=== PATIENT | male | born 2000 | race African-American/Black ===

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

== ENCOUNTER 2020-07-14 17:12 | Inpatient (IN) ==
[2020-07-14] MEDS ORDERED: ONDANSETRON 4 MG/2 ML VIAL IV ONE (17:43)
[2020-07-14] MEDS ORDERED: HYDROmorphone 2 MG/1 ML VIAL IV STA ×2 (17:43→18:20)
[2020-07-14] MEDS ORDERED: SODIUM CHLORIDE 0.9% 1,000 ML IV STA (17:44)
[2020-07-14 18:08] LABS: Calcium 8.7 MG/DL (8.5-10.1); Osmolality,Calculated 261.5 MOS/KG (273-304); Potassium 3.9 MMOL/L (3.5-5.1)
[2020-07-14 18:09] LABS: Basophils # 0.1 10*3/uL (0.0-0.2); Basophils % 0.4 % (0.0-0.8); Eosinophils # 0.3 10*3/uL (0.0-0.87); Eosinophils % 1.4 % (0.00-10.9); Hematocrit 21.8 VOL% (42.0-52.0); Hemoglobin 7.6 GM/DL (14.0-18.0); Immature Granulocytes % 2.2 %; Immature Granulocytes Absolute 0.49 #; Lymphocytes # 4.7 10*3/uL (1.4-4.0); Lymphocytes % 20.9 % (21.2-54.2); Mean Corpuscular HGB Conc 34.9 GM/DL (32-36); Mean Corpuscular Volume 73.4 FL (87-102); NRBC # 0.23 10*3/uL; Neutrophils % 69.1 % (38.7-73.9); Platelet Count 248 T/CUMM (130-400); Red Blood Count 2.97 MC/CUMM (3.8-5.5); Red Cell Distribution Width 29.4 % (9.3-17.3); White Blood Count 22.7 T/CUMM (4-12)
[2020-07-14] MEDS ORDERED: MORPHINE 4 MG/1 ML VIAL IV STA ×2 (19:05→21:12)
[2020-07-14] MEDS ORDERED: cefTRIAXone 1,000 MG in SODIUM CHLORIDE 0.9% 100 ML IV STA (19:06)
[2020-07-14 19:16] LABS: Anisocytosis 4+; Eosinophils 3 % (0-10); Hypochromasia 1+; Lymphocytes 23 % (20-55); Microcytosis 1+; Nucleated Red Blood Cells 1 (0-5); Ovalocytes 1+; Segmented Neutrophils 69 % (50-85); Sickle Cells 3+; Total Cells Counted 100
[2020-07-14] MEDS ORDERED: GLUCAGON 1 MG VIAL IM PRN (21:38)
[2020-07-14] MEDS ORDERED: SODIUM CHLORIDE 0.9% 1,000 ML IV PRN (21:38)
[2020-07-14] MEDS ORDERED: ALBUTEROL/IPRATROPIUM 3 ML NEB RESP TX PRN (21:38)
[2020-07-14] MEDS ORDERED: NALOXONE 0.4 MG/ML VIAL IV PRN (21:38)
[2020-07-14] MEDS ORDERED: DEXTROSE 50% 25 GM/50 ML VIAL IV PRN (21:38)
[2020-07-14] MEDS ORDERED: AZITHROMYCIN INJ 500 MG in SODIUM CHLORIDE 0.9% 250 ML IV SCH (22:00)
[2020-07-14] MEDS ORDERED: HYDROmorphone PCA 30 MG/30 ML SYRINGE IV SCH (22:00)
[2020-07-15] MEDS: SODIUM CHLORIDE 0.9% 1,000 ML IV SCH ×3 (00:11→19:14)
[2020-07-15] MEDS: ENOXAPARIN 40 MG/0.4 ML SYRINGE SUBCUT SCH ×2 (01:18→21:54)
[2020-07-15] MEDS: diphenhydrAMINE CAP 25 MG CAPSULE PO PRN (02:27)
[2020-07-15] MEDS: ONDANSETRON 4 MG/2 ML VIAL IV PRN ×3 (03:43→19:30)
[2020-07-15 08:17] LABS: Basophils # 0.1 10*3/uL (0.0-0.2); Basophils % 0.3 % (0.0-0.8); Eosinophils # 0.2 10*3/uL (0.0-0.87); Eosinophils % 1.2 % (0.00-10.9); Immature Granulocytes % 1.5 %; Immature Granulocytes Absolute 0.27 #; Lymphocytes # 4.3 10*3/uL (1.4-4.0); Lymphocytes % 24.5 % (21.2-54.2); Mean Corpuscular Volume 71.8 FL (87-102); Mean Platelet Volume 9.6 FL (9.6-12.0); Monocytes % 8.4 % (1.7-12.7); NRBC # 0.33 10*3/uL; Neutrophils % 64.1 % (38.7-73.9); Platelet Count 253 T/CUMM (130-400); Red Blood Count 2.48 MC/CUMM (3.8-5.5); Red Cell Distribution Width 29.4 % (9.3-17.3); White Blood Count 17.6 T/CUMM (4-12)
[2020-07-15 08:20] LABS: Hemoglobin 6.4 GM/DL (14.0-18.0)
[2020-07-15 08:21] LABS: Hematocrit 17.8 VOL% (42.0-52.0)
[2020-07-15 08:35] LABS: Eosinophils 1 % (0-10); Lymphocytes 34 % (20-55); Nucleated Red Blood Cells 4 (0-5); Platelet Estimate Adequate; Segmented Neutrophils 58 % (50-85); Total Cells Counted 100
[2020-07-15 08:36] LABS: Macrocytosis Slight; Polychromasia Slight; Sickle Cells 2+
[2020-07-15 08:37] LABS: Hypochromasia 1+
[2020-07-15 08:38] LABS: Dohle Bodies Slight; Pappenheimer Bodies Slight
[2020-07-15 08:40] LABS: Albumin 3.4 G/DL (3.4-5.0); Bilirubin,Total 3.7 MG/DL (0.2-1.0); Calcium 8.1 MG/DL (8.5-10.1); Potassium 3.8 MMOL/L (3.5-5.1); Total Protein 7.4 G/DL (6.4-8.3)
[2020-07-15] MEDS ORDERED: PANTOPRAZOLE 40 MG TABLET PO SCH (09:00)
[2020-07-15] MEDS ORDERED: SODIUM CHLORIDE 0.9% 1,000 ML IV PRN (09:42)
[2020-07-15] MEDS ORDERED: cefTRIAXone 1,000 MG in SODIUM CHLORIDE 0.9% 100 ML IV SCH (18:00)
[2020-07-15 18:25] LABS: Hematocrit 26.8 VOL% (42.0-52.0); Hemoglobin 9.4 GM/DL (14.0-18.0)
[2020-07-15] MEDS ORDERED: AZITHROMYCIN 250 MG TABLET PO SCH (21:00)
[2020-07-15] MEDS ORDERED: HYDROmorphone PCA 30 MG/30 ML SYRINGE IV SCH (22:00)
[2020-07-16] MEDS: diphenhydrAMINE CAP 25 MG CAPSULE PO PRN (01:07)
[2020-07-16] MEDS: SODIUM CHLORIDE 0.9% 1,000 ML IV SCH ×2 (03:31→11:00)
[2020-07-16 05:54] LABS: Basophils % 0.3 % (0.0-0.8); Eosinophils # 0.4 10*3/uL (0.0-0.87); Eosinophils % 2.6 % (0.00-10.9); Hematocrit 25.6 VOL% (42.0-52.0); Hemoglobin 8.8 GM/DL (14.0-18.0); Immature Granulocytes Absolute 0.16 #; Lymphocytes % 31.6 % (21.2-54.2); Mean Corpuscular HGB Conc 34.4 GM/DL (32-36); Mean Corpuscular Volume 75.7 FL (87-102); Mean Platelet Volume 9.4 FL (9.6-12.0); NRBC # 0.39 10*3/uL; Neutrophils % 54.5 % (38.7-73.9); Platelet Count 263 T/CUMM (130-400); Red Blood Count 3.38 MC/CUMM (3.8-5.5); Red Cell Distribution Width 31.1 % (9.3-17.3); White Blood Count 15.8 T/CUMM (4-12)
[2020-07-16 06:33] LABS: Calcium 8.1 MG/DL (8.5-10.1); Osmolality,Calculated 274.4 MOS/KG (273-304); Potassium 3.7 MMOL/L (3.5-5.1)
[2020-07-16 11:35] VITALS: BP 111/57
== END 2020-07-16 13:25 | disposition home or self-care (01) | DRG 662 ==
LOC: EDUNIT# → EDBD → N.ED 17:12 → N.EDINP 21:38 → N.5E 23:38
PROVIDERS: ADMIT Internal Medicine; ATTEND Internal Medicine

== ENCOUNTER 2020-11-21 03:57 | Inpatient (IN) ==
[2020-11-21 04:29] LABS: Basophils # 0.1 10*3/uL (0.0-0.2); Basophils % 0.4 % (0.0-0.8); Eosinophils # 0.5 10*3/uL (0.0-0.87); Eosinophils % 2.4 % (0.00-10.9); Hematocrit 19.6 VOL% (42.0-52.0); Hemoglobin 7.1 GM/DL (14.0-18.0); Immature Granulocytes % 1.6 %; Lymphocytes # 4.2 10*3/uL (1.4-4.0); Lymphocytes % 21.9 % (21.2-54.2); Mean Corpuscular HGB Conc 36.2 GM/DL (32-36); Mean Platelet Volume 9.4 FL (9.6-12.0); Monocytes % 8.7 % (1.7-12.7); NRBC # 0.81 10*3/uL; Platelet Count 249 T/CUMM (130-400); Red Blood Count 2.48 MC/CUMM (3.8-5.5); Red Cell Distribution Width 30.8 % (9.3-17.3)
[2020-11-21] MEDS ORDERED: KETOROLAC 30 MG/1 ML VIAL IV STA (04:44)
[2020-11-21 04:47] LABS: Hypochromasia 2+; Lymphocytes 30 % (20-55); Macrocytosis Slight; Nucleated Red Blood Cells 9 (0-5); Platelet Estimate Adequate; Polychromasia Slight; Segmented Neutrophils 64 % (50-85); Sickle Cells 1+; Target Cells Few; Total Cells Counted 100
[2020-11-21 04:53] LABS: Bilirubin,Total 4.6 MG/DL (0.2-1.0); Calcium 8.3 MG/DL (8.5-10.1); Potassium 3.9 MMOL/L (3.5-5.1); Total Protein 7.4 G/DL (6.4-8.2)
[2020-11-21] MEDS ORDERED: SODIUM CHLORIDE 0.9% 1,000 ML IV PRN (05:30)
[2020-11-21] MEDS ORDERED: NALOXONE 0.4 MG/ML VIAL IV PRN (05:30)
[2020-11-21] MEDS ORDERED: GLUCAGON 1 MG VIAL IM PRN (05:33)
[2020-11-21] MEDS ORDERED: DOCUSATE SODIUM 100 MG CAPSULE PO PRN (05:34)
[2020-11-21] MEDS ORDERED: ACETAMINOPHEN 325 MG TABLET PO PRN (05:34)
[2020-11-21] MEDS ORDERED: ONDANSETRON 4 MG/2 ML VIAL IV PRN (05:34)
[2020-11-21] MEDS ORDERED: diphenhydrAMINE CAP 25 MG CAPSULE PO PRN (05:34)
[2020-11-21] MEDS ORDERED: HYDROmorphone 2 MG/1 ML VIAL IV STA (05:46)
[2020-11-21] MEDS ORDERED: ONDANSETRON 4 MG/2 ML VIAL IV STA (05:48)
[2020-11-21] MEDS: SODIUM CHLORIDE 0.9% 1,000 ML IV SCH ×3 (06:00→23:38)
[2020-11-21] MEDS: HYDROmorphone PCA 30 MG/30 ML SYRINGE IV SCH (09:38)
[2020-11-21 18:53] LABS: Hematocrit 26.3 VOL% (42.0-52.0)
[2020-11-21 18:55] LABS: Hemoglobin 9.1 GM/DL (14.0-18.0)
[2020-11-21] MEDS ORDERED: HYDROmorphone PCA 30 MG/30 ML SYRINGE IV SCH (20:00)
[2020-11-22] MEDS ORDERED: HYDROmorphone PCA 30 MG/30 ML SYRINGE IV SCH (05:30)
[2020-11-22 06:12] LABS: Basophils % 0.4 % (0.0-0.8); Eosinophils # 0.2 10*3/uL (0.0-0.87); Eosinophils % 1.5 % (0.00-10.9); Hematocrit 26.1 VOL% (42.0-52.0); Immature Granulocytes % 0.5 %; Immature Granulocytes Absolute 0.06 #; Lymphocytes # 3.6 10*3/uL (1.4-4.0); Mean Corpuscular HGB Conc 34.5 GM/DL (32-36); Mean Corpuscular Volume 83.4 FL (87-102); Mean Platelet Volume 9.9 FL (9.6-12.0); Monocytes % 10.3 % (1.7-12.7); NRBC # 0.62 10*3/uL; Neutrophils % 55.3 % (38.7-73.9); Platelet Count 262 T/CUMM (130-400); Red Blood Count 3.13 MC/CUMM (3.8-5.5); White Blood Count 11.2 T/CUMM (4-12)
[2020-11-22 06:22] LABS: Albumin 3.4 G/DL (3.4-5.0); Bilirubin,Total 3.6 MG/DL (0.2-1.0); Calcium 8.2 MG/DL (8.5-10.1); Osmolality,Calculated 272.5 MOS/KG (273-304); Potassium 3.9 MMOL/L (3.5-5.1); Total Protein 6.5 G/DL (6.4-8.2)
[2020-11-22] MEDS: SODIUM CHLORIDE 0.9% 1,000 ML IV SCH ×2 (07:45→16:08)
[2020-11-22] MEDS: HYDROmorphone PCA 30 MG/30 ML SYRINGE IV SCH (07:47)
[2020-11-22] MEDS ORDERED: oxyCODONE IR 5 MG TABLET PO PRN (23:05)
[2020-11-23] MEDS: SODIUM CHLORIDE 0.9% 1,000 ML IV SCH ×2 (00:11→07:17)
[2020-11-23 05:41] LABS: Basophils % 0.3 % (0.0-0.8); Eosinophils # 0.2 10*3/uL (0.0-0.87); Eosinophils % 2.5 % (0.00-10.9); Hematocrit 25.4 VOL% (42.0-52.0); Hemoglobin 8.8 GM/DL (14.0-18.0); Immature Granulocytes % 0.2 %; Immature Granulocytes Absolute 0.02 #; Lymphocytes # 3.9 10*3/uL (1.4-4.0); Lymphocytes % 44.2 % (21.2-54.2); Mean Corpuscular HGB Conc 34.6 GM/DL (32-36); Mean Corpuscular Volume 82.5 FL (87-102); Mean Platelet Volume 10.2 FL (9.6-12.0); NRBC # 0.04 10*3/uL; Neutrophils % 41.8 % (38.7-73.9); Platelet Count 212 T/CUMM (130-400); Red Blood Count 3.08 MC/CUMM (3.8-5.5); White Blood Count 8.9 T/CUMM (4-12)
[2020-11-23 05:58] LABS: Albumin 3.5 G/DL (3.4-5.0); Bilirubin,Total 4.2 MG/DL (0.2-1.0); Calcium 8.3 MG/DL (8.5-10.1); Osmolality,Calculated 278.1 MOS/KG (273-304); Potassium 4.4 MMOL/L (3.5-5.1); Total Protein 6.8 G/DL (6.4-8.2)
[2020-11-23 06:36] LABS: Sickle Cells 3+
[2020-11-23 06:37] LABS: Hypochromasia 1+; Microcytosis 1+; Poikilocytosis 3+; Polychromasia Slight
[2020-11-23 06:39] LABS: Platelet Estimate Normal
[2020-11-23 08:23] VITALS: BP 97/42
== END 2020-11-23 13:04 | disposition home or self-care (01) | DRG 662 ==
LOC: EDUNIT# → EDBD → N.ED 03:57 → N.EDINP 05:17 → N.3E 08:06
PROVIDERS: ADMIT Internal Medicine; ATTEND Internal Medicine

== ENCOUNTER 2020-12-25 10:28 | Observation (INO) ==
[2020-12-25] MEDS ORDERED: ONDANSETRON 4 MG/2 ML VIAL IV STA (11:53)
[2020-12-25] MEDS ORDERED: HYDROmorphone 2 MG/1 ML VIAL IV STA (11:53)
[2020-12-25 12:37] LABS: Basophils # 0.1 10*3/uL (0.0-0.2); Basophils % 0.5 % (0.0-0.8); Eosinophils # 0.6 10*3/uL (0.0-0.87); Eosinophils % 2.8 % (0.00-10.9); Hematocrit 22.7 VOL% (42.0-52.0); Hemoglobin 8.3 GM/DL (14.0-18.0); Immature Granulocytes % 1.2 %; Immature Granulocytes Absolute 0.24 #; Lymphocytes # 7.6 10*3/uL (1.4-4.0); Lymphocytes % 36.2 % (21.2-54.2); Mean Corpuscular HGB Conc 36.6 GM/DL (32-36); Mean Corpuscular Volume 83.8 FL (87-102); Mean Platelet Volume 9.8 FL (9.6-12.0); Monocytes % 7.6 % (1.7-12.7); Neutrophils % 51.7 % (38.7-73.9); Platelet Count 253 T/CUMM (130-400); Red Blood Count 2.71 MC/CUMM (3.8-5.5); Red Cell Distribution Width 26.9 % (9.3-17.3); White Blood Count 20.9 T/CUMM (4-12)
[2020-12-25 12:54] LABS: Albumin 4.1 G/DL (3.4-5.0); Bilirubin,Total 4.5 MG/DL (0.20-1.00); Calcium 8.5 MG/DL (8.5-10.1); Osmolality,Calculated 269.8 MOS/KG (273-304); Potassium 3.5 MMOL/L (3.5-5.1); Total Protein 7.3 G/DL (6.4-8.2)
[2020-12-25 13:35] LABS: Eosinophils 1 % (0-10); Lymphocytes 48 % (20-55); Nucleated Red Blood Cells 2 (0-5); Segmented Neutrophils 46 % (50-85); Total Cells Counted 100
[2020-12-25 13:38] LABS: Burr Cells Few; Hypochromasia Slight; Platelet Estimate Increased; Polychromasia 1+; Sickle Cells 3+
[2020-12-25] MEDS ORDERED: ONDANSETRON 4 MG/2 ML VIAL IV PRN (14:34)
[2020-12-25] MEDS ORDERED: DEXTROSE 50% 25 GM/50 ML VIAL IV PRN (14:34)
[2020-12-25] MEDS ORDERED: GLUCAGON 1 MG VIAL IM PRN (14:34)
[2020-12-25 15:34] LABS: ABG Base Excess -3.2 MMOL/L (-2.5-2.5); ABG HCO3 21.7 MMOL/L (20-26); ABG Oxygen Saturation 98.2 % (95-100); ABG PCO2 43.4 MM HG (35-48); ABG PH 7.326 (7.35-7.45); ABG TCO2 21.2 MMOL/L (23-27)
[2020-12-25] MEDS: SODIUM CHLORIDE 0.9% 1,000 ML IV SCH (16:13)
[2020-12-25] MEDS: ALBUTEROL/IPRATROPIUM 3 ML NEB RESP TX SCH (19:39)
[2020-12-25] MEDS: MORPHINE 2 MG/1 ML SYRINGE IV PRN (21:06)
[2020-12-25] MEDS ORDERED: HYDROmorphone 2 MG/1 ML VIAL IV PRN (23:50)
[2020-12-26] MEDS: ALBUTEROL/IPRATROPIUM 3 ML NEB RESP TX SCH ×2 (00:24→07:35)
[2020-12-26] MEDS: MORPHINE 2 MG/1 ML SYRINGE IV PRN ×2 (01:49→08:55)
[2020-12-26] MEDS: SODIUM CHLORIDE 0.9% 1,000 ML IV SCH ×2 (01:51→07:10)
[2020-12-26 05:23] LABS: Basophils # 0.1 10*3/uL (0.0-0.2); Basophils % 0.4 % (0.0-0.8); Eosinophils # 0.5 10*3/uL (0.0-0.87); Eosinophils % 3.7 % (0.00-10.9); Hematocrit 23.1 VOL% (42.0-52.0); Hemoglobin 8.1 GM/DL (14.0-18.0); Immature Granulocytes % 0.3 %; Immature Granulocytes Absolute 0.05 #; Lymphocytes # 6.1 10*3/uL (1.4-4.0); Lymphocytes % 41.2 % (21.2-54.2); Mean Corpuscular HGB Conc 35.1 GM/DL (32-36); Mean Corpuscular Volume 84.9 FL (87-102); Monocytes % 10.3 % (1.7-12.7); NRBC # 0.22 10*3/uL; Neutrophils % 44.1 % (38.7-73.9); Platelet Count 249 T/CUMM (130-400); Red Blood Count 2.72 MC/CUMM (3.8-5.5); Red Cell Distribution Width 27.1 % (9.3-17.3); White Blood Count 14.7 T/CUMM (4-12)
[2020-12-26 05:53] LABS: Albumin 3.8 G/DL (3.4-5.0); Bilirubin,Total 3.5 MG/DL (0.20-1.00); Calcium 8.3 MG/DL (8.5-10.1); Potassium 4.2 MMOL/L (3.5-5.1); Total Protein 6.9 G/DL (6.4-8.2)
[2020-12-26 06:18] LABS: Hypochromasia 1+; Microcytosis 1+; Ovalocytes Few; Target Cells Few
[2020-12-26 06:19] LABS: Polychromasia Few; Sickle Cells 1+
[2020-12-26 06:20] LABS: Anisocytosis 1+; Platelet Estimate Normal
[2020-12-26 07:47] VITALS: BP 92/54
== END 2020-12-26 11:11 | disposition home or self-care (01) ==
LOC: EDUNIT# → EDBD → N.EDINP 10:28 → N.ED 10:28 → SUATTDRO 14:34 → N.EDINP 12-26 00:32 → N.3E 12-26 00:38
PROVIDERS: ADMIT Internal Medicine; ATTEND Internal Medicine

== ENCOUNTER 2021-09-14 22:28 | Observation (INO) ==
[2021-09-14 23:14] LABS: Basophils # 0.1 10*3/uL (0.0-0.2); Basophils % 0.5 % (0.0-0.8); Eosinophils # 0.1 10*3/uL (0.0-0.87); Eosinophils % 0.7 % (0.00-10.9); Hematocrit 20.6 VOL% (42.0-52.0); Hemoglobin 7.1 GM/DL (14.0-18.0); Immature Granulocytes % 0.5 %; Immature Granulocytes Absolute 0.06 #; Lymphocytes # 3.2 10*3/uL (1.4-4.0); Lymphocytes % 27.5 % (21.2-54.2); Mean Corpuscular HGB Conc 34.5 GM/DL (32-36); Mean Corpuscular Volume 74.1 FL (87-102); Mean Platelet Volume 9.5 FL (9.6-12.0); Monocytes % 12.8 % (1.7-12.7); NRBC # 0.03 10*3/uL; Platelet Count 239 T/CUMM (130-400); Red Blood Count 2.78 MC/CUMM (3.8-5.5); Red Cell Distribution Width 26.5 % (9.3-17.3); White Blood Count 11.5 T/CUMM (4-12)
[2021-09-14 23:18] LABS: Bilirubin,Urine Negative (Negative); Blood, Urine Negative (Negative); Glucose,Urine (UA) Negative (Negative); Ketones,Urine Negative (Negative); Nitrite,Urine Negative (Negative); Protein,Urine Negative (Negative); Squamous Epithelial Cell,Urine Occasional /HPF (0-10); Urine Appearance Clear (Clear); Urine Color Yellow (Yellow); Urine Specific Gravity 1.015 (1.001-1.035)
[2021-09-14] MEDS ORDERED: SODIUM CHLORIDE 0.9% 1,000 ML IV STA (23:28)
[2021-09-14] MEDS ORDERED: ONDANSETRON 4 MG/2 ML VIAL IV ONE (23:28)
[2021-09-14] MEDS ORDERED: MORPHINE 2 MG/1 ML SYRINGE IV STA (23:28)
[2021-09-14] MEDS ORDERED: KETOROLAC 30 MG/1 ML VIAL IV STA (23:28)
[2021-09-14 23:36] LABS: Lymphocytes 28 % (20-55); Nucleated Red Blood Cells 5 (0-5); Platelet Estimate Adequate; Poikilocytosis 2+; Polychromasia 1+; Segmented Neutrophils 64 % (50-85); Sickle Cells 2+; Target Cells 2+; Total Cells Counted 100
[2021-09-14 23:37] LABS: Albumin 3.9 G/DL (3.4-5.0); Bilirubin,Total 2.9 MG/DL (0.20-1.00); Calcium 8.4 MG/DL (8.5-10.1); Osmolality,Calculated 273.5 MOS/KG (273-304); Total Protein 7.5 G/DL (6.4-8.2)
[2021-09-14] MEDS ORDERED: POTASSIUM CHLORIDE 20 MEQ TABLET PO STA (23:52)
[2021-09-15] MEDS ORDERED: GLUCAGON 1 MG VIAL IM PRN (01:11)
[2021-09-15] MEDS ORDERED: SODIUM CHLORIDE 0.9% 1,000 ML IV PRN (01:11)
[2021-09-15] MEDS ORDERED: SIMETHICONE CHEW 125 MG TABLET PO PRN (01:11)
[2021-09-15] MEDS ORDERED: ACETAMINOPHEN 325 MG TABLET PO PRN (01:11)
[2021-09-15] MEDS ORDERED: ONDANSETRON 4 MG/2 ML VIAL IV PRN (01:11)
[2021-09-15] MEDS ORDERED: DEXTROSE 10% 250 ML BAG IV PRN (01:11)
[2021-09-15] MEDS ORDERED: NALOXONE 0.4 MG/ML VIAL IV PRN (01:11)
[2021-09-15] MEDS ORDERED: HYDROmorphone PCA 30 MG/30 ML SYRINGE IV SCH (01:30)
[2021-09-15] MEDS ORDERED: HYDROmorphone 1 MG/1 ML SYRINGE IV STA (01:32)
[2021-09-15] MEDS: LACTATED RINGERS 1,000 ML IV SCH ×3 (03:08→18:05)
[2021-09-15 04:51] LABS: Hemoglobin 7.5 GM/DL (14.0-18.0)
[2021-09-15 04:58] LABS: Calcium 7.8 MG/DL (8.5-10.1); Osmolality,Calculated 276.4 MOS/KG (273-304); Potassium 3.5 MMOL/L (3.5-5.1); Thyroid Stimulating Hormone 2.02 uIU/ml (0.358-3.74)
[2021-09-15] MEDS ORDERED: POTASSIUM CHLORIDE RIDER 10 MEQ/100 ML PREMIX IV PRN (05:24)
[2021-09-15] MEDS ORDERED: POTASSIUM CHLORIDE 20 MEQ TABLET PO PRN (05:24)
[2021-09-15] MEDS ORDERED: FOLIC ACID 1 MG TABLET PO SCH (09:00)
[2021-09-15] MEDS ORDERED: PANTOPRAZOLE 40 MG TABLET PO SCH (09:00)
[2021-09-15] MEDS ORDERED: DOCUSATE SODIUM 100 MG CAPSULE PO SCH (09:00)
[2021-09-15] MEDS ORDERED: HYDROXYUREA 500 MG CAPSULE PO SCH (09:00)
[2021-09-15 14:26] LABS: Hematocrit 22.5 VOL% (42.0-52.0); Hemoglobin 7.8 GM/DL (14.0-18.0)
[2021-09-15 15:40] VITALS: BP 114/46
[2021-09-15] MEDS ORDERED: oxyCODONE/ACETAMINOPHEN 5-325 MG TABLET PO PRN (17:19)
[2021-09-16] MEDS ORDERED: HYDROmorphone PCA 30 MG/30 ML SYRINGE IV SCH (01:30)
== END 2021-09-15 19:30 | disposition left against medical advice (07) ==
LOC: EDUNIT# → EDBD → N.ED 22:28 → N.EDINP 22:28 → N.3E 09-15 15:07
PROVIDERS: ADMIT Internal Medicine; ATTEND Internal Medicine

== ENCOUNTER 2022-01-04 23:11 | Observation (INO) ==
[2022-01-05] MEDS ORDERED: SODIUM CHLORIDE 0.9% 1,000 ML IV STA (02:15)
[2022-01-05] MEDS ORDERED: HYDROmorphone 1 MG/1 ML SYRINGE IV STA (02:16)
[2022-01-05] MEDS ORDERED: ONDANSETRON 4 MG/2 ML VIAL IV STA (02:16)
[2022-01-05 02:50] LABS: Basophils # 0.1 10*3/uL (0.0-0.2); Basophils % 0.4 % (0.0-0.8); Eosinophils # 0.4 10*3/uL (0.0-0.87); Hematocrit 24.2 VOL% (42.0-52.0); Hemoglobin 8.4 GM/DL (14.0-18.0); Immature Granulocytes % 0.6 %; Immature Granulocytes Absolute 0.11 #; Lymphocytes # 4.1 10*3/uL (1.4-4.0); Lymphocytes % 22.7 % (21.2-54.2); Mean Corpuscular HGB Conc 34.7 GM/DL (32-36); Mean Platelet Volume 9.2 FL (9.6-12.0); Monocytes # 1.7 10*3/uL (0.11-0.8); Monocytes % 9.2 % (1.7-12.7); NRBC # 0.04 10*3/uL; Neutrophils % 65.1 % (38.7-73.9); Platelet Count 337 T/CUMM (130-400); Red Blood Count 3.41 MC/CUMM (3.8-5.5); Red Cell Distribution Width 25.2 % (9.3-17.3); White Blood Count 17.9 T/CUMM (4-12)
[2022-01-05 03:13] LABS: Albumin 4.6 G/DL (3.4-5.0); Bilirubin,Total 2.9 MG/DL (0.20-1.00); Calcium 9.1 MG/DL (8.5-10.1); Osmolality,Calculated 273.5 MOS/KG (273-304); Potassium 3.6 MMOL/L (3.5-5.1); Total Protein 8.2 G/DL (6.4-8.2)
[2022-01-05 03:15] LABS: Eosinophils 1 % (0-10); Lymphocytes 22 % (20-55); Polychromasia 2+; Sickle Cells 4+; Total Cells Counted 100
[2022-01-05 03:16] LABS: Platelet Estimate Normal; Target Cells Few
[2022-01-05] MEDS ORDERED: DEXTROSE 10% 250 ML BAG IV PRN (05:33)
[2022-01-05] MEDS ORDERED: GLUCAGON 1 MG VIAL IM PRN (05:33)
[2022-01-05] MEDS: HYDROmorphone 1 MG/1 ML SYRINGE IV PRN ×3 (05:59→15:38)
[2022-01-05] MEDS ORDERED: LACTATED RINGERS 1,000 ML IV SCH (06:00)
[2022-01-05] MEDS ORDERED: SODIUM CHLORIDE 0.9% 1,000 ML IV SCH (06:30)
[2022-01-05] MEDS ORDERED: oxyCODONE/ACETAMINOPHEN 5-325 MG TABLET PO PRN ×2 (08:10→09:36)
[2022-01-05] MEDS ORDERED: FOLIC ACID 1 MG TABLET PO SCH (09:00)
[2022-01-05] MEDS ORDERED: HYDROXYUREA 500 MG CAPSULE PO SCH (09:00)
[2022-01-05] MEDS ORDERED: guaiFENesin/DM ER 600-30 MG TABLET PO SCH (09:45)
[2022-01-05] MEDS ORDERED: AZITHROMYCIN INJ 500 MG in SODIUM CHLORIDE 0.9% 250 ML IV ONE (10:00)
[2022-01-05] MEDS ORDERED: predniSONE 20 MG TABLET PO SCH (10:00)
[2022-01-05] MEDS ORDERED: ONDANSETRON 4 MG/2 ML VIAL IV PRN (10:43)
[2022-01-05 18:00] VITALS: BP 105/60
[2022-01-06] MEDS ORDERED: AZITHROMYCIN INJ 250 MG in SODIUM CHLORIDE 0.9% 250 ML IV SCH (09:00)
== END 2022-01-05 19:23 | disposition left against medical advice (07) ==
LOC: EDUNIT# → EDBD → N.EDINP 23:11 → N.ED 23:11 → N.EDINP 01-05 08:26 → N.TELES 01-05 09:16
PROVIDERS: ADMIT Family Medicine; ATTEND Family Medicine

== ENCOUNTER 2022-07-18 09:21 | Observation (INO) ==
[2022-07-18] MEDS ORDERED: SODIUM CHLORIDE 0.9% 1,000 ML IV STA (10:25)
[2022-07-18 10:35] LABS: Basophils # 0.1 10*3/uL (0.0-0.2); Basophils % 0.2 % (0.0-0.8); Eosinophils # 0.1 10*3/uL (0.0-0.87); Eosinophils % 0.5 % (0.00-10.9); Hematocrit 27.5 VOL% (42.0-52.0); Hemoglobin 9.4 GM/DL (14.0-18.0); Immature Granulocytes % 0.6 %; Immature Granulocytes Absolute 0.17 #; Lymphocytes # 3.5 10*3/uL (1.4-4.0); Lymphocytes % 12.6 % (21.2-54.2); Mean Corpuscular HGB Conc 34.2 GM/DL (32-36); Mean Platelet Volume 9.8 FL (9.6-12.0); Monocytes # 1.4 10*3/uL (0.11-0.8); NRBC # 0.06 10*3/uL; Neutrophils % 81.1 % (38.7-73.9); Platelet Count 330 T/CUMM (130-400); Red Blood Count 3.62 MC/CUMM (3.8-5.5)
[2022-07-18] MEDS ORDERED: HYDROmorphone 1 MG/1 ML SYRINGE IV STA ×2 (10:39→11:44)
[2022-07-18] MEDS ORDERED: ONDANSETRON 4 MG/2 ML VIAL IV STA (10:39)
[2022-07-18 10:41] LABS: Mucus,Urine Occasional /LPF (Occasional); RBC,Urine <1 /HPF (0-4); Squamous Epithelial Cell,Urine Occasional /HPF (0-10)
[2022-07-18] MEDS ORDERED: ONDANSETRON 4 MG/2 ML VIAL ONE (10:41)
[2022-07-18 10:42] LABS: Bilirubin,Urine Negative (Negative); Blood, Urine Negative (Negative); Glucose,Urine (UA) Negative (Negative); Ketones,Urine Negative (Negative); Nitrite,Urine Negative (Negative); Protein,Urine Negative (Negative); Urine Appearance Clear (Clear); Urine Color Yellow (Yellow)
[2022-07-18 10:53] LABS: Albumin 4.5 G/DL (3.4-5.0); Bilirubin,Total 1.7 MG/DL (0.20-1.00); Calcium 9.1 MG/DL (8.5-10.1); Osmolality,Calculated 273.5 MOS/KG (273-304); Potassium 4.1 MMOL/L (3.5-5.1)
[2022-07-18 10:55] LABS: Anisocytosis 1+; Band Neutrophils 1 % (0-10); Eosinophils 2 % (0-10); Lymphocytes 17 % (20-55); Platelet Estimate Normal; Polychromasia 1+; Sickle Cells 2+; Target Cells 1+; Total Cells Counted 100
[2022-07-18 11:12] LABS: Barbiturates Screen,Urine Negative (Negative); Benzodiazepines Screen,Urine Negative (Negative); Cannabinoid Screen,Urine Positive (Negative); Opiate Screen,Urine Negative (Negative); Phencyclidine Screen,Urine Negative (Negative)
[2022-07-18 14:06] LABS: Basophils # 0.1 10*3/uL (0.0-0.2); Basophils % 0.2 % (0.0-0.8); Eosinophils # 0.2 10*3/uL (0.0-0.87); Eosinophils % 0.7 % (0.00-10.9); Hematocrit 25.8 VOL% (42.0-52.0); Hemoglobin 8.8 GM/DL (14.0-18.0); Immature Granulocytes % 0.7 %; Immature Granulocytes Absolute 0.18 #; Lymphocytes # 5.2 10*3/uL (1.4-4.0); Lymphocytes % 19.4 % (21.2-54.2); Mean Corpuscular HGB Conc 34.1 GM/DL (32-36); Mean Corpuscular Volume 75.7 FL (87-102); Mean Platelet Volume 10.4 FL (9.6-12.0); Monocytes # 1.3 10*3/uL (0.11-0.8); Monocytes % 4.8 % (1.7-12.7); NRBC # 0.04 10*3/uL; Neutrophils % 74.2 % (38.7-73.9); Platelet Count 321 T/CUMM (130-400); Red Blood Count 3.41 MC/CUMM (3.8-5.5); White Blood Count 26.85 T/CUMM (4-12)
[2022-07-18 14:35] LABS: Lymphocytes 21 % (20-55); Total Cells Counted 100
[2022-07-18 14:37] LABS: Platelet Estimate Adequate
[2022-07-18 14:41] LABS: Microcytosis Slight
[2022-07-18 14:42] LABS: Sickle Cells 2+; Target Cells Slight
[2022-07-18 14:43] LABS: Polychromasia Slight
[2022-07-18 14:44] LABS: Hypochromia Slight
[2022-07-18] MEDS ORDERED: SODIUM CHLORIDE 0.9% 1,000 ML IV SCH (15:00)
[2022-07-18] MEDS: HYDROmorphone 1 MG/1 ML SYRINGE IV PRN ×3 (15:15→21:54)
[2022-07-18] MEDS: ENOXAPARIN 40 MG/0.4 ML SYRINGE SUBCUT SCH (16:36)
[2022-07-18] MEDS: oxyCODONE IR 5 MG TABLET PO PRN ×2 (17:38→23:39)
[2022-07-19] MEDS: HYDROmorphone 1 MG/1 ML SYRINGE IV PRN ×4 (01:32→21:04)
[2022-07-19 06:26] LABS: Basophils # 0.1 10*3/uL (0.0-0.2); Basophils % 0.3 % (0.0-0.8); Eosinophils # 0.6 10*3/uL (0.0-0.87); Eosinophils % 4.3 % (0.00-10.9); Hematocrit 26.6 VOL% (42.0-52.0); Hemoglobin 8.9 GM/DL (14.0-18.0); Immature Granulocytes % 0.6 %; Immature Granulocytes Absolute 0.08 #; Lymphocytes # 4.4 10*3/uL (1.4-4.0); Mean Corpuscular HGB Conc 33.5 GM/DL (32-36); Mean Corpuscular Volume 76.2 FL (87-102); Monocytes # 1.3 10*3/uL (0.11-0.8); Monocytes % 8.9 % (1.7-12.7); NRBC # 0.07 10*3/uL; Neutrophils % 54.9 % (38.7-73.9); Platelet Count 330 T/CUMM (130-400); Red Blood Count 3.49 MC/CUMM (3.8-5.5); Red Cell Distribution Width 23.9 % (9.3-17.3)
[2022-07-19 06:27] LABS: White Blood Count 14.32 T/CUMM (4-12)
[2022-07-19 06:58] LABS: Calcium 8.6 MG/DL (8.5-10.1); Potassium 4.1 MMOL/L (3.5-5.1)
[2022-07-19 07:04] LABS: Osmolality,Calculated 275.4 MOS/KG (273-304)
[2022-07-19] MEDS ORDERED: FOLIC ACID 1 MG TABLET PO SCH (09:00)
[2022-07-19] MEDS: KETOROLAC 15 MG/1 ML VIAL IV PRN ×2 (09:27→16:01)
[2022-07-19] MEDS: PANTOPRAZOLE 40 MG TABLET PO SCH (09:28)
[2022-07-19] MEDS: FOLIC ACID 1 MG TABLET PO SCH (09:28)
[2022-07-19] MEDS: ENOXAPARIN 40 MG/0.4 ML SYRINGE SUBCUT SCH (16:04)
[2022-07-19] MEDS: oxyCODONE/ACETAMINOPHEN 5-325 MG TABLET PO PRN (23:56)
[2022-07-20] MEDS: KETOROLAC 15 MG/1 ML VIAL IV PRN (03:18)
[2022-07-20] MEDS: HYDROmorphone 1 MG/1 ML SYRINGE IV PRN (08:03)
[2022-07-20] MEDS: FOLIC ACID 1 MG TABLET PO SCH (09:03)
[2022-07-20] MEDS: PANTOPRAZOLE 40 MG TABLET PO SCH (09:03)
[2022-07-20] MEDS: oxyCODONE/ACETAMINOPHEN 5-325 MG TABLET PO PRN (10:58)
[2022-07-20 12:18] VITALS: BP 126/52
== END 2022-07-20 14:47 | disposition home or self-care (01) ==
LOC: N.ED 09:21 → N.EDINP 09:21 → SUATTDRO 14:53 → N.2E 15:00
PROVIDERS: ADMIT Internal Medicine; ATTEND Internal Medicine